=== PATIENT | female | born 1995 | race Caucasian/White ===

== ENCOUNTER 2017-09-22 01:05 | Emergency (ER) | payer SELFPAY ==
[~2017-09-22] VITALS: Ht 162.6 cm; Wt 72.7 kg
[2017-09-22 01:13] VITALS: Ht 162.6 cm; Wt 72.7 kg
[2017-09-22 01:47] LABS: BASOPHILS 0.1 % (0-2); EOSINOPHILS 0.2 % (0-7); HEMATOCRIT 38.4 % (36.0-48.0); HEMOGLOBIN 13.1 g/dL (12-16); IMMATURE GRANULOCYTES 0.4 % (0-5); LYMPHOCYTES 6.4 % (15-50); MCH 30.7 pg (26.0-34.0); MCHC 34.1 g/dL (31.0-37.0); MCV 89.9 fL (80.0-100.0); MEAN PLATELET VOLUME 9.2 fL (7.4-10.4); NEUTROPHILS 88.9 % (40-80); PLATELET COUNT 272 10x3/uL (130-400); RBC 4.27 10x6/uL (4.00-5.40); RDW 12.9 % (11.5-14.5); WBC 20.5 10x3/uL (4.8-10.8)
[2017-09-22 01:48] LABS: APPEARANCE CLOUDY (CLEAR); BILIRUBIN NEGATIVE (NEGATIVE); COLOR YELLOW (YELLOW); GLUCOSE NEGATIVE (NEGATIVE); KETONE NEGATIVE (NEGATIVE); NITRITE NEGATIVE (NEGATIVE); PROTEIN 1+ mg/dL (NEGATIVE); UROBILINOGEN NORMAL (NORMAL)
[2017-09-22 01:49] LABS: BACTERIA MODERATE /hpf (NONE SEEN); EPITHELIAL CELLS 0-5 /hpf (0-5); HCG URINE NEGATIVE (NEGATIVE); WHITE CELLS - URINE >50 /hpf (0-5)
[2017-09-22 02:09] LABS: ALBUMIN 3.6 g/dL (3.4-5.0); ALKALINE PHOSPHATASE 67 U/L (46-116); ALT (SGPT) 45 U/L (10-68); BILIRUBIN - TOTAL 0.97 mg/dL (0.2-1.3); CALC OSMOLALITY 279 mosm/kg (275-300); CALCIUM 8.6 mg/dL (8.5-10.1); CARBON DIOXIDE 26.4 mmol/L (21.0-32.0); CHLORIDE - SERUM 104 mmol/L (98-107); CREATININE - SERUM 0.8 mg/dL (0.6-1.3); GLUCOSE 113 mg/dL (74-106); LIPASE 96 U/L (73-393); POTASSIUM - SERUM 3.7 mmol/L (3.5-5.1); PROTEIN - SERUM 7.2 g/dL (6.4-8.2); SODIUM 140 mmol/L (136-145); TROPONIN-I < 0.017 ng/mL (0.000-0.060); UREA NITROGEN 13 mg/dL (7-18); eGFR NON AFRICAN AMERICAN > 90 mL/min (90-120)
[2017-09-22] MEDS ORDERED: MACROBID100 MG PO (03:14)
[2017-09-22 03:28] VITALS: BP 100/52
== END 2017-09-22 03:28 | disposition home or self-care (01) ==
LOC: D.ER 01:05
PROVIDERS: Family Medicine
DX: N39.0 Urinary tract infection, site not specified (principal); R50.9 Fever, unspecified; F17.200 Nicotine dependence, unspecified, uncomplicated

== ENCOUNTER 2018-04-27 14:01 | Outpatient (CLI) | payer MEDICAID ==
[~2018-04-27] VITALS: Ht 162.6 cm; Wt 65.0 kg
[~2018-04-27 14:01] MED LIST: MACROBID100 MG PO
[2018-04-27] MEDS ORDERED: TAMIFLU75 MG PO (14:50)
[2018-04-27] MEDS ORDERED: PREPLUS CA-FE1 EACH PO (14:50)
[2018-04-27 15:29] LABS: APPEARANCE SL CLDY (CLEAR); BILIRUBIN 1+ (NEGATIVE); COLOR DK YELLOW (YELLOW); GLUCOSE NEGATIVE (NEGATIVE); KETONE LARGE mg/dL (NEGATIVE); NITRITE NEGATIVE (NEGATIVE); PROTEIN 1+ mg/dL (NEGATIVE)
[2018-04-27 15:31] LABS: RED CELLS - URINE 0-5 /hpf (0-5)
[2018-04-27 15:32] LABS: BACTERIA MODERATE /hpf (NONE SEEN)
[2018-04-27 16:32] LABS: BASOPHILS 0.1 % (0-2); EOSINOPHILS 0 % (0-7); HEMATOCRIT 35.3 % (36.0-48.0); HEMOGLOBIN 12.5 g/dL (12-16); IMMATURE GRANULOCYTES 0.4 % (0-5); MCH 31.1 pg (26.0-34.0); MCHC 35.4 g/dL (31.0-37.0); MCV 87.8 fL (80.0-100.0); MEAN PLATELET VOLUME 9.9 fL (7.4-10.4); MONOCYTES 6.5 % (2-11); PLATELET COUNT 244 10x3/uL (130-400); RBC 4.02 10x6/uL (4.00-5.40); RDW 12.7 % (11.5-14.5); WBC 18.3 10x3/uL (4.8-10.8)
[2018-04-27 16:44] LABS: ANION GAP 17.5 mmol/L (8-16); CARBON DIOXIDE 21.2 mmol/L (21.0-32.0)
[2018-04-27 16:53] LABS: POTASSIUM - SERUM 2.7 mmol/L (3.5-5.1)
[2018-04-27 18:22] VITALS: BP 95/50; Ht 162.6 cm; Wt 65.0 kg
--- NOTE | 2018-04-27 19:36 | NUR ---
[facility] FOR ALL ASSESSMENT AND DOCUMENTATION FOR THIS PT.
[2018-04-28 07:32] LABS: BASOPHILS 0.2 % (0-2); EOSINOPHILS 0.1 % (0-7); HEMATOCRIT 31.9 % (36.0-48.0); HEMOGLOBIN 10.9 g/dL (12-16); IMMATURE GRANULOCYTES 0.3 % (0-5); LYMPHOCYTES 13.6 % (15-50); MCH 30.4 pg (26.0-34.0); MCHC 34.2 g/dL (31.0-37.0); MCV 89.1 fL (80.0-100.0); MEAN PLATELET VOLUME 9.9 fL (7.4-10.4); MONOCYTES 4.4 % (2-11); NEUTROPHILS 81.4 % (40-80); PLATELET COUNT 232 10x3/uL (130-400); RBC 3.58 10x6/uL (4.00-5.40); RDW 12.7 % (11.5-14.5); WBC 19.8 10x3/uL (4.8-10.8)
[2018-04-28 07:53] LABS: CALC OSMOLALITY 273 mosm/kg (275-300); CARBON DIOXIDE 24.9 mmol/L (21.0-32.0); CHLORIDE - SERUM 105 mmol/L (98-107); CREATININE - SERUM 0.5 mg/dL (0.6-1.3); GLUCOSE 88 mg/dL (74-106); POTASSIUM - SERUM 3.4 mmol/L (3.5-5.1); SODIUM 140 mmol/L (136-145); UREA NITROGEN 2 mg/dL (7-18); eGFR NON AFRICAN AMERICAN > 90 mL/min (90-120)
--- NOTE | 2018-04-28 08:46 | NUR ---
DR. AVILA IN ROOM TO SPEAK WITH PT.
[2018-04-28 09:15] VITALS: BP 99/50
--- NOTE | 2018-04-28 09:15 | NUR ---
TO PT'S ROOM, AM ASSESSMENT COMPLETED. FHR BY DOPPLER 130'S-140'S. PT DENIES VAG BLEEDING OR LEAKING OF FLUID. PT REPORTS A PRODUCTIVE COUGH OF YELLOWISH/GREEN PHLEGM TODAY. VS OBTAINED, AND STABLE. FRESH CUP OF ICE WATER SERVED TO PT. PT DENIES ALL OTHER NEEDS AT THIS TIME. ISOLATION PRECAUTIONS/VISITORS IN ROOM DISCUSSED AND EXPLAINED TO PT. PT AGREES. SRUP X2, CALL LIGHT AND PHONE WITHIN REACH.
--- NOTE | 2018-04-28 10:00 | NUR ---
DR. DIAZ ON UNIT, TO ROOM TO SPEAK WITH PT.
--- NOTE | 2018-04-28 12:00 | NUR ---
TO PT'S ROOM, PT'S FATHER HAS BROUGHT IN FOOD AND DRINKS FOR LUNCH. PT'S MOTHER ALSO AT BEDSIDE. PT REQUESTS COUGH MEDICINE FOR PRODUCTIVE COUGH THROUGHOUT THE MORNING. SEE [facility] FOR ALL MEDS ADM BY THIS RN. PT DENIES NAUSEA, SOB, OR DIFFICULTY BREATHING. PT PROVIDED WITH BABY SHAMPOO, TOOTHBRUSH/PASTE, AND PERIPANTIES, CLEAN LINENS AND GOWN TO FRESHEN UP WITH. PT DENIES ALL OTHER NEEDS. PT STATES SHE WILL GET UP TO THE BATHROOM AFTER SHE FINISHES EATING LUNCH.
--- NOTE | 2018-04-28 13:00 | NUR ---
TO PT'S ROOM, PT IS BACK IN BED. IV SITE TO RIGHT WRIST RE-TAPED, PT GOT IT WET WASHING HANDS. SCD'S PLACED BACK ON. IV CONTINUES TO INFUSE LR AT 125 ML/HR, NO REDNESES OR SWELLING NOTED TO IV SITE. REGULAR LUNCH SERVED THAT DIETARY BROUGHT AND SAT ON THE DESK. PT DENIES ALL OTHER NEEDS AT THIS TIME. SR UP X2, CALL LIGHT AND PHONE WITHIN REACH.
--- NOTE | 2018-04-28 14:10 | NUR ---
PT'S MOTHER AT DESK AND STATES "SHE HAS TO LEAVE NOW! THERE AIN'T NOBODY TO WATCH HER BABY RIGHT NOW". TO PT'S ROOM, PT STATES "THE PERSON STAYING WITH MY BABY HAS TO LEAVE AND THERE AIN'T NOBODY TO STAY WITH HER!" DR. AVILA NOTIFIED BY PHONE, AND PT WILL SIGN OUT AMA, PT HAS TAMIFLU AT HOME. DR. AVILA WILL CALL IN ANTIBIOTICS TO TREAT PNEUMONIA TO [facility] LISTED, AND PT WILL NEED TO CONTACT PCP FOR PHENERGAN WITH CODEINE COUGH SYRUP.
--- NOTE | 2018-04-28 14:15 | NUR ---
AMA FOR EXPLAINED TO PT, PT READS AMA FORM AND SIGNS FORM. IV CATH DC'D WITH TIP INTACT. PT DRESSING FOR DISCHARGE.
--- NOTE | 2018-04-28 14:20 | NUR ---
INFORMED PT THAT DR. AVILA HAS CALLED IN ANTIBIOTICS TO TREAT HER PNEUMONIA, AND PT NEEDS TO TAKE TAMIFLU X 3 MORE SCHEDULED DOSES, AND PT WILL NEED TO CONTACT PCP FOR PHENERGAN WITH CODEINE COUGH SYRUP. PT AGREES.
--- NOTE | 2018-04-28 14:25 | NUR ---
PT AMBULATORY OFF UNIT WITH HER MOTHER.
== END 2018-04-28 14:25 | disposition left against medical advice (07) ==
LOC: D.LDO 14:01 → D.LD 17:19 → D.LDO 04-28 14:25
PROVIDERS: Emergency Medicine; ATTEND Obstetrics & Gynecology
DX: O26.892 Other specified pregnancy related conditions, second trimester (principal); Z3A.23 23 weeks gestation of pregnancy; R06.02 Shortness of breath